=== PATIENT | female | born 1945 | race Caucasian/White ===

== ENCOUNTER 2017-07-23 19:08 | Observation (INO) ==
--- NOTE | 2017-07-23 19:17 | Emergency Department Note ---
Disposition Clinical Impression: Lower extremity edema, Elevated d-dimer Disposition: Admitted As Inpatient Condition: Fair Forms: ED Satisfaction Letter Time of Disposition: 21:27 ([facility]) Lower Extremity Injury HPI - General Chief Complaint: ED Extremity Problem,Nontraumatic Stated Complaint: Left leg pain Time Seen by Provider: 07/23/17 19:13 Source: patient Mode of arrival: ambulatory Limitations: no limitations Nursing Notes Reviewed: Yes Vital Signs Reviewed: Yes - History of Present Illness HPI Narrative: Status post total knee is now having severe leg pain states is worse when she ambulates she has followed up with orthopedics he told the incision looks good the knee joint looks good even x-ray showed the knee appears to be healing well patient though cannot understand why she is having 10 out of 10 pain since having the surgery C said she went home initially was doing fine here in the past couple weeks has really been having increasing pain and discomfort pt has noticed since the decrease in temperatures outside the pain has been getting worse has not seen chun downing Pt Subjective Complaint: leg injury Injury location: Left Leg Onset (ago): week(s) Mechanism of Injury: unknown Context: walking Place: home Pain Severity: moderate, severe Pain Scale: 7 Improves with: nothing Worsens with: weight bearing Associated symptoms: Reports: able to partially bear weight Treatments prior to arrival: other (has seen orthopedic provider) - Related Data Home Medications Medication Instructions Recorded Confirmed Amlodipine Besylate 10 mg PO 07/23/17 Aspirin Enteric Coated [Aspirin EC] 81 mg PO DAILY 07/23/17 07/23/17 Atorvastatin Calcium [Lipitor] 20 mg PO HS 07/23/17 07/23/17 Celecoxib [Celebrex] 100 mg PO BID 07/23/17 07/23/17 Ipratropium/Albuterol Neb [Duoneb] 3 ml IH Q6HR 07/23/17 07/23/17 Lansoprazole [Prevacid] 30 mg PO DAILY 07/23/17 07/23/17 Levothyroxine [Synthroid] 50 mcg PO DAILY 07/23/17 07/23/17 Lisinopril/Hydrochlorothiazide 20 - 25 mg PO DAILY 07/23/17 07/23/17 [Zestoretic 10-12.5 mg Tablet] Montelukast [Singulair] 10 mg PO DAILY 07/23/17 07/23/17 rOPINIRole [Requip] 1 mg PO TID 07/23/17 07/23/17 Allergies Allergy/AdvReac Type Severity Reaction Status Date / Time gabapentin AdvReac Hallucinati Verified 03/20/17 11:13 ng meloxicam [From Mobic] AdvReac Hallucinati Verified 03/20/17 11:13 ng Zolpidem [From Ambien] AdvReac Hallucinati Verified 03/20/17 11:13 ng All systems ED: reviewed and negative except as stated. Review of Systems: As Per HPI Constitutional: Denies: fever, chills Eyes: Denies: eye pain, eye discharge ENT ED: Denies: ear pain, throat pain Cardiovascular: Denies: chest pain, palpitations Respiratory: Denies: cough, dyspnea Gastrointestinal: Denies: abdominal pain, nausea, vomiting Genitourinary: Denies: urgency, dysuria Musculoskeletal: Reports: arthralgia, myalgia. Denies: joint swelling Integumentary: Denies: rash, abrasion Neurological: Denies: headache, weakness Psychiatric: Denies: anxiety, depression Endocrine: Denies: fatigue Hematological/Lymphatic: Denies: easy bleeding, easy bruising Allergic/Immunologic: Denies: facial swelling, urticaria Past Medical History - Past Medical History Attestation: Yes The following information was validated with the patient. Source: patient, old records reviewed, nursing notes reviewed Medical history: Reports: arthritis, asthma, atrial fibrillation, COPD, GERD, hyperlipidemia, hypertension, osteoporosis, thyroid disease, other Surgical history: Reports: hysterectomy, other Psychiatric history: Reports: depression [employer] history: Reports: bilateral tubal ligation - Social History Smoking Status: Never smoker Smokeless Tobacco Status: No Alcohol use: Reports: none Drug use: Reports: none Physical Exam - General Limitations: no limitations General appearance: alert, in no apparent distress, anxious - Head Head exam: atraumatic, normocephalic, normal inspection - Eye Eye exam: Present: normal appearance, PERRL, EOMI - ENT ENT exam: normal exam, normal oropharynx, mucous membranes moist, TM's normal bilaterally, normal external ear exam - Neck Neck exam: Present: normal inspection, full ROM, trachea midline - Chest Chest inspection: Present: normal inspection, symmetric chest wall rise - Respiratory Respiratory exam: Present: normal lung sounds bilaterally - Cardiovascular Cardiovascular exam: Present: regular rate, normal rhythm, normal heart sounds - Abdominal Exam Abdominal exam: Present: soft, Non-Tender, normal bowel sounds. Absent: mass, pulsatile mass - Expanded Upper Extremity Exam Shoulder exam: Present: normal inspection, full ROM Arm exam: Present: normal inspection, full ROM Elbow exam: Present: normal inspection, full ROM Forearm/Wrist exam: Present: normal inspection, full ROM Hand exam: Present: normal inspection, full ROM Neurosensory exam: Normal: radial nerve, ulnar nerve, median nerve Vascular exam: Normal: capillary refill, radial pulse, ulnar pulse - Expanded Lower Extremity Exam Hip/Pelvis exam: Present: normal inspection, full ROM Upper leg exam: Present: normal inspection, full ROM Knee exam: Present: normal inspection, full ROM Lower leg exam: Present: normal inspection, full ROM, tenderness, swelling, Homans' sign, Achilles tendon intact Ankle exam: Present: normal inspection, full ROM Foot/toe exam: Present: normal inspection, full ROM Neurovascular/Tendon exam: Present: normal capillary refill, normal fine/light touch. Absent: motor deficit, sensory deficit, tendon deficit Gait: observed and normal - Back Exam Back exam: Present: normal inspection, full ROM. Absent: muscle spasm - Neurological Exam Neurological exam: Present: alert, oriented X3, CN II-XII intact, normal gait - Psychiatric Psychiatric exam: Present: normal affect, normal mood - Skin Skin exam: Present: warm, dry, intact, normal color Course Course Narrative: pt seen and examined and labs done Vital Signs Temperature 97.7 F 07/23/17 19:09 Pulse Rate 90 07/23/17 19:09 Respiratory Rate 16 07/23/17 19:09 Blood Pressure 156/85 07/23/17 19:09 O2 Sat by Pulse Oximetry 100 07/23/17 19:09 Temperature 97.7 F 07/23/17 19:09 Pulse Rate 90 07/23/17 19:09 Respiratory Rate 16 07/23/17 19:09 Blood Pressure 156/85 07/23/17 19:09 O2 Sat by Pulse Oximetry 100 07/23/17 19:09 Oxygen Delivery Oxygen Delivery Room Air Extremity Injury, Lower - MDM Narrative Medical decision making narrative: DVT vascular disease - Differential Diagnosis Likely: sprain/strain, fracture, dislocation - Medical Records Medical records reviewed: Yes I reviewed the patient's medical records. - Lab Data Lab results reviewed: Yes I reviewed the patient's lab results. Result diagrams: 07/23/17 19:23 07/23/17 19:23 Lab Results 07/23/17 07/23/17 07/23/17 Range/Units 19:23 19:23 19:23 WBC 9.4 (4.3-11.1) K/mcL RBC 4.34 (3.82-4.97) M/mcL Hgb 12.3 (11.5-15.4) g/dL Hct 37.5 (35.3-44.9) % MCV 86.4 (83.0-100.0) fL MCH 28.3 (28.0-33.3) pg MCHC 32.8 (31.6-35.5) g/dL RDW 13.4 (11.5-14.5) % Plt Count 289 (140-400) K/mcL MPV 10.3 (9.4-12.4) fL Immature Gran % 0.5 (0-4) % Seg Neutrophils % 55.8 % Lymphocytes % 28.7 % Monocytes % 6.6 % Eosinophils % 7.7 % Basophils % 0.7 % Neutrophils # 5.2 (1.6-8.9) K/mcL Lymphocytes # 2.7 (0.6-4.6) K/mcL Monocytes # 0.6 (0.0-1.3) K/mcL Eosinophils # 0.7 H (0.0-0.6) K/mcL Basophils # 0.1 (0.0-0.2) K/mcL PT 10.7 (9.4-12.1) Seconds INR 1.0 APTT 29.5 (26.0-36.0) Seconds D-Dimer 1383 H (0-500) ng/mLFEU Sodium 140 (136-145) mEq/L Potassium 4.2 (3.5-4.5) mEq/L Chloride 106 (98-109) mEq/L Carbon Dioxide 25 (19-29) mEq/L BUN 19 (7-20) mg/dL Creatinine 0.83 (0.57-1.11) mg/dL Est GFR ( Amer) > 60 (> 60) Est GFR (Non-Af Amer) > 60 (> 60) BUN/Creatinine Ratio 23 (6-26) Glucose 92 (70-99) mg/dL Calculated Osmolality 292 (280-300) Calcium 9.5 (8.6-10.8) mg/dL Critical Care Time Critical Care Time: No
[2017-07-23 19:31] LABS: Basophils # 0.1 K/mcL (0.0-0.2); Basophils % 0.7 %; Eosinophils # 0.7 K/mcL (0.0-0.6); Eosinophils % 7.7 %; Hematocrit 37.5 % (35.3-44.9); Hemoglobin 12.3 g/dL (11.5-15.4); Immature Granulocytes % 0.5 % (0-4); Lymphocytes # 2.7 K/mcL (0.6-4.6); Lymphocytes % 28.7 %; Mean Corpuscular HGB Conc 32.8 g/dL (31.6-35.5); Mean Corpuscular Hemoglobin 28.3 pg (28.0-33.3); Mean Corpuscular Volume 86.4 fL (83.0-100.0); Mean Platelet Volume 10.3 fL (9.4-12.4); Monocytes # 0.6 K/mcL (0.0-1.3); Monocytes % 6.6 %; Neutrophils # 5.2 K/mcL (1.6-8.9); Platelet Count 289 K/mcL (140-400); Red Blood Count 4.34 M/mcL (3.82-4.97); Red Cell Distribution Width 13.4 % (11.5-14.5); Segmented Neutrophils % 55.8 %
[2017-07-23 19:38] LABS: Prothrombin Time 10.7 Seconds (9.4-12.1)
[2017-07-23 19:41] LABS: Activated Partial Thrombo Time 29.5 Seconds (26.0-36.0)
[2017-07-23 19:47] LABS: BUN/Creatinine Ratio 23 (6-26); Blood Urea Nitrogen 19 mg/dL (7-20); Calcium 9.5 mg/dL (8.6-10.8); Carbon Dioxide 25 mEq/L (19-29); Chloride 106 mEq/L (98-109); Glucose 92 mg/dL (70-99); Osmolality,Calculated 292 (280-300); Potassium 4.2 mEq/L (3.5-4.5); Sodium 140 mEq/L (136-145); eGFR For African Americans > 60 (> 60); eGFR For Non-African Americans > 60 (> 60)
[2017-07-23] MEDS ORDERED: *HR* Enoxaparin 100 MG/ML SYRINGE SQ STA (21:28)
[2017-07-23] MEDS ORDERED: *HR* HYDROcodone/Acet 5/325 mg TABLET PO ONE (21:28)
[2017-07-23] MEDS ORDERED: Naloxone 0.4 MG/ML INJ IVP PRN (21:51)
[2017-07-23] MEDS ORDERED: *HR* HYDROcodone/Acet 5/325 mg TABLET PO PRN (21:51)
[2017-07-23] MEDS ORDERED: Ondansetron ODT 4 MG TAB.RAPDIS SL PRN (21:51)
[2017-07-23] MEDS: rOPINIRole 1 MG TABLET PO SCH (23:05)
[2017-07-24] MEDS: Ipratropium/Albuterol Neb 3 ML IH SCH ×3 (04:40→15:38)
[2017-07-24] MEDS ORDERED: Levothyroxine 25 MCG TABLET PO SCH (06:30)
[2017-07-24 08:14] LABS: Basophils # 0.1 K/mcL (0.0-0.2); Basophils % 0.8 %; Eosinophils # 0.8 K/mcL (0.0-0.6); Eosinophils % 10.6 %; Hematocrit 36.2 % (35.3-44.9); Hemoglobin 11.6 g/dL (11.5-15.4); Immature Granulocytes % 0.4 % (0-4); Lymphocytes # 2.6 K/mcL (0.6-4.6); Lymphocytes % 34.3 %; Mean Corpuscular Hemoglobin 28.1 pg (28.0-33.3); Mean Corpuscular Volume 87.7 fL (83.0-100.0); Mean Platelet Volume 11.2 fL (9.4-12.4); Monocytes # 0.5 K/mcL (0.0-1.3); Monocytes % 6.7 %; Neutrophils # 3.6 K/mcL (1.6-8.9); Platelet Count 273 K/mcL (140-400); Red Blood Count 4.13 M/mcL (3.82-4.97); Red Cell Distribution Width 13.6 % (11.5-14.5); Segmented Neutrophils % 47.2 %
[2017-07-24] MEDS: rOPINIRole 1 MG TABLET PO SCH (08:50)
[2017-07-24] MEDS ORDERED: rOPINIRole 1 MG TABLET PO SCH (09:00)
[2017-07-24] MEDS ORDERED: Aspirin Enteric Coated 81 MG Tablet PO SCH (09:00)
[2017-07-24] MEDS ORDERED: *HR* Enoxaparin 100 MG/ML SYRINGE SQ SCH ×2 (09:00→14:45)
[2017-07-24] MEDS ORDERED: Celecoxib 100 MG CAPSULE PO SCH (09:00)
[2017-07-24 09:03] LABS: Prothrombin Time 11.2 Seconds (9.4-12.1)
[2017-07-24 09:05] LABS: Activated Partial Thrombo Time 35.8 Seconds (26.0-36.0)
[2017-07-24 09:35] LABS: BUN/Creatinine Ratio 26 (6-26); Blood Urea Nitrogen 20 mg/dL (7-20); Carbon Dioxide 25 mEq/L (19-29); Chloride 107 mEq/L (98-109); Glucose 75 mg/dL (70-99); Osmolality,Calculated 293 (280-300); Potassium 4.3 mEq/L (3.5-4.5); Sodium 141 mEq/L (136-145); eGFR For African Americans > 60 (> 60); eGFR For Non-African Americans > 60 (> 60)
[2017-07-24 14:41] VITALS: BP 112/64
--- NOTE | 2017-07-24 15:18 | Internal Med History&Physical ---
Date of Encounter: 07/24/17 Time of Encounter: 14:45 Assessment and Plan (1) Left knee pain Current visit: Yes Status: Acute Venous Doppler study was ordered through emergency room. Qualifiers: Chronicity: acute Qualified Code(s): M25.562 - Pain in left knee Internal Medicine - H&P: HPI Chief complaint: Left leg pain Admitted From: Emergency Dept Plans for Post Hospital Care: Home History of present illness: Ms. Ross is a 72 year old female who came to emergency room complaining of increasing pain in her left leg onset one month earlier. She denies injury to the leg. She had elective left total knee replacement March 2017 and had followed with her orthopedist approximately 2 weeks ago. Knee x-rays were negative and she was given a seven-day supply of oxycodone. She reports she is being referred to MRI and possible pain management. Evaluation in emergency room showed elevated d-dimer. Chest CTA was unremarkable for PE. She was admitted to [facility] floor until venous Doppler could be done. Her musculoskeletal history is pertinent for DJD and osteoporosis. She denies known gout or other bone joint or muscle disorders. Past Med Surg Social Fam HX - Past Medical History Medical history: arthritis, asthma, atrial fibrillation, COPD, GERD, hyperlipidemia, hypertension, osteoporosis, thyroid disease, other Psychiatric history: depression - Past Surgical History Surgical History: hysterectomy, other - Social History Smoking Status: Never smoker Smokeless Tobacco Status: No Alcohol use: none Drug use: none - Family History Mother Living Status: Hx Family Cardiac Disorders: No Hx Family Respiratory Disorders: No Hx Family Cancer: Yes (Skin) Hx Family GI Disorders: No Hx Family Endocrine Disorder: No Hx Family Neuromuscular Disorders: No Hx Family Neurologic Disorders: No Hx Family HEENT Disorders: No Hx Family Autoimmune Disorders: No Father Living Status: Hx Family Cardiac Disorders: Yes (NM) Hx Family Respiratory Disorders: No Hx Family Cancer: No Hx Family GI Disorders: No Hx Family Endocrine Disorder: No Hx Family Neuromuscular Disorders: No Hx Family Neurologic Disorders: No Hx Family HEENT Disorders: No Hx Family Autoimmune Disorders: No Internal Medicine - H&P: Meds Amlodipine Besylate 10 mg PO 07/23/17 [History] Aspirin Enteric Coated [Aspirin EC] 81 mg PO DAILY 07/23/17 [History] Atorvastatin Calcium [Lipitor] 20 mg PO HS 07/23/17 [History] Celecoxib [Celebrex] 100 mg PO BID 07/23/17 [History] Ipratropium/Albuterol Neb [Duoneb] 3 ml IH Q6HR 07/23/17 [History] Lansoprazole [Prevacid] 30 mg PO DAILY 07/23/17 [History] Levothyroxine [Synthroid] 50 mcg PO DAILY 07/23/17 [History] Lisinopril/Hydrochlorothiazide [Zestoretic 10-12.5 mg Tablet] 20 - 25 mg PO DAILY 07/23/17 [History] Montelukast [Singulair] 10 mg PO DAILY 07/23/17 [History] rOPINIRole [Requip] 1 mg PO TID 07/23/17 [History] 3 Allergy/AdvReac Type Severity Reaction Status Date / Time gabapentin AdvReac Hallucinati Verified 03/20/17 11:13 ng meloxicam [From Mobic] AdvReac Hallucinati Verified 03/20/17 11:13 ng Zolpidem [From Ambien] AdvReac Hallucinati Verified 03/20/17 11:13 ng All Systems PM: A 10-system review of systems was performed and is negative for pertinent findings except as documented above in the HPI. Review of systems: Gen.: Her weight has been stable at approximately 90 kg since the February 2015 [facility] hospitalization. Cardiovascular: She has a history of hypertension. She denies NM heart failure DVT or pulmonary embolus. She was unable to complete an exercise stress test several years ago due to being unable to walk on the treadmill. She had transient atrial fibrillation during her February 2015 [facility] hospitalization. Respiratory: She is a lifelong nonsmoker. 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 She had PFTs approximately 2012 and was told she had asthma and COPD. GI: She has GERD but no known disorders of her liver gallbladder or exocrine pancreas : She denies hematuria dysuria or kidney stones Neurologic: She has diagnoses of RLS. She denies large distribution strokes or seizures. Endocrine: She has hypothyroidism and hyperlipidemia but denies known diabetes. Hematology/oncology: She has history of anemia but it has resolved now. She denies internal malignancies or blood disorders. Psychiatric: She has history of anxiety and depression in the past. She denies other known mental health disorders. Musculoskeletal: As per history of present illness - Constitutional Vitals: Temp Pulse Resp BP Pulse Ox 97.7 F 75 18 112/64 95 07/24/17 14:39 07/24/17 14:39 07/24/17 14:39 07/24/17 14:39 07/24/17 14:39 Exam: Gen.: She is a well-developed well-nourished female resting comfortably in bed who appears in no acute distress HEENT: Head is atraumatic and normocephalic. Eyes: EOMI. There is no scleral icterus. Mouth: Mucosa is moist. Neck: Supple and nontender. There is no thyromegaly or adenopathy noted. Heart: Regular without murmurs gallops or ectopics Lungs: No wheezes or crackles are heard. Abdomen: Soft and nontender. No masses or guarding are noted. Extremities: There is no cyanosis edema or clubbing noted. Dorsalis pedis and posterior tibial pulses are 1-2 over 2 bilaterally. The left knee shows well- healed incision from previous TKR. There is no effusion or erythema or increased warmth on the left knee. She has minimal discomfort on passive range of motion of the knee. There is no pain on internal or external rotation of the left hip or on passive range of motion of the ankle. She has DJD changes of her hands. Neurologic: Mental status: She is talkative and a good historian. Cranial nerves: Smile is symmetric. Forehead wrinkles bilaterally. Tongue protrudes midline. EOMI. Motor: There is no pronator drift. Cerebellar: Finger to nose is intact bilaterally. Skin: Warm and dry Internal Med - H&P Results - Labs CBC & Chem 7: 07/24/17 07:27 07/24/17 07:27 Labs: Short CBC 07/24/17 Range/Units 07:27 WBC 7.6 (4.3-11.1) K/mcL Hgb 11.6 (11.5-15.4) g/dL Hct 36.2 (35.3-44.9) % Plt Count 273 (140-400) K/mcL Neutrophils # 3.6 (1.6-8.9) K/mcL BMP 07/24/17 07:27 Sodium 141 Potassium 4.3 Chloride 107 Carbon Dioxide 25 BUN 20 Creatinine 0.78 Glucose 75 Calcium 9.0
--- NOTE | 2017-07-24 15:28 | Discharge Summary ---
Date of Encounter: 07/24/17 Time of Encounter: 14:45 - Discharge Diagnosis (1) Left knee pain Priority: Primary Status: Acute Qualifiers: Chronicity: acute Qualified Code(s): M25.562 - Pain in left knee - Discharge Medications Home Medications: Amlodipine Besylate 10 mg PO 07/23/17 [History] Aspirin Enteric Coated [Aspirin EC] 81 mg PO DAILY 07/23/17 [History] Atorvastatin Calcium [Lipitor] 20 mg PO HS 07/23/17 [History] Celecoxib [Celebrex] 100 mg PO BID 07/23/17 [History] Ipratropium/Albuterol Neb [Duoneb] 3 ml IH Q6HR 07/23/17 [History] Lansoprazole [Prevacid] 30 mg PO DAILY 07/23/17 [History] Levothyroxine [Synthroid] 50 mcg PO DAILY 07/23/17 [History] Lisinopril/Hydrochlorothiazide [Zestoretic 10-12.5 mg Tablet] 20 - 25 mg PO DAILY 07/23/17 [History] Montelukast [Singulair] 10 mg PO DAILY 07/23/17 [History] rOPINIRole [Requip] 1 mg PO TID 07/23/17 [History] Allergies/Adverse Reactions: 3 Allergy/AdvReac Type Severity Reaction Status Date / Time gabapentin AdvReac Hallucinati Verified 03/20/17 11:13 ng meloxicam [From Mobic] AdvReac Hallucinati Verified 03/20/17 11:13 ng Zolpidem [From Ambien] AdvReac Hallucinati Verified 03/20/17 11:13 ng Procedures/tests Complete & Pending: Procedures Performed prior 72 hours Category Date Time Status EV venous imaging LE LT Stat Y 07/24/17 07:00 Completed Date of admission: 07/23/17 21:39 Primary care physician: Ashlyn Herman - Patient Status Disposition: Home, Self-Care Condition: Fair Overall status at discharge: patient is progressing back to baseline - Discharge Instructions Follow Up With: Ashlyn Herman, IT APPLICATIONS MANAGER [Primary Care Provider] - 1 week - Diet and Activity Activity: resume usual activities as tolerated Diet: advance to your usual diet Hospital course: Ms. Ross is a 72 year old female who came to emergency room complaining of increasing pain in her left leg onset one month earlier. She denies injury to the leg. She had elective left total knee replacement March 2017 and had followed with her orthopedist approximately 2 weeks ago. Knee x-rays were negative and she was given a seven-day supply of oxycodone. She reports she is being referred to MRI and possible pain management. Evaluation in emergency room showed elevated d-dimer. Chest CTA was unremarkable for PE. She was admitted to [facility] until venous Doppler could be done. Initial orders were written by the emergency room physician. I saw her the afternoon of July 24 and performed a history physical and discharge. Venous Doppler study showed no evidence of DVT. I felt she was stable for discharge home. I encouraged her to use OTC Tylenol 500 mg every 6 hours and continue the Celebrex she is already taking. She will follow with her PCP and/or orthopedist within 1 week. - Time Spent with Patient Total time spent providing and/or coordinating discharge services: - Constitutional Vitals: Temp Pulse Resp BP Pulse Ox 97.7 F 75 18 112/64 95 07/24/17 14:39 07/24/17 14:39 07/24/17 14:39 07/24/17 14:39 07/24/17 14:39
== END 2017-07-24 15:55 | disposition home or self-care (01) ==
LOC: INPPIK 19:08 → EMEROOPIK 19:08 → INPPIK 22:01
PROVIDERS: ADMIT Internal Medicine; ATTEND Internal Medicine

== ENCOUNTER 2019-05-22 08:29 | Observation (INO) ==
[2019-05-22] MEDS ORDERED: Albuterol 2.5 MG/3 ML NEBULIZER IH ONE (08:32)
[2019-05-22] MEDS ORDERED: methylPREDNISolone 125 MG/2 ML VIAL IVP ONE (08:32)
[2019-05-22] MEDS ORDERED: Ipratropium/Albuterol Neb 3 ML IH ONE (08:32)
[2019-05-22 08:55] LABS: Basophils # 0.1 K/mcL (0.0-0.2); Basophils % 0.7 %; Eosinophils # 0.9 K/mcL (0.0-0.6); Eosinophils % 9.9 %; Hematocrit 38.2 % (35.3-44.9); Hemoglobin 12.2 g/dL (11.5-15.4); Immature Granulocytes % 0.3 % (0-4); Lymphocytes % 23.5 %; Mean Corpuscular HGB Conc 31.9 g/dL (31.6-35.5); Mean Corpuscular Hemoglobin 28.8 pg (28.0-33.3); Mean Corpuscular Volume 90.1 fL (83.0-100.0); Mean Platelet Volume 10.8 fL (9.4-12.4); Monocytes # 0.7 K/mcL (0.0-1.3); Monocytes % 8.1 %; Platelet Count 272 K/mcL (140-400); Red Blood Count 4.24 M/mcL (3.82-4.97); Red Cell Distribution Width 12.9 % (11.5-14.5); Segmented Neutrophils % 57.5 %; White Blood Count 8.7 K/mcL (4.3-11.1)
[2019-05-22 08:57] LABS: INR 1.1; Prothrombin Time 12.2 Seconds (9.4-12.1)
[2019-05-22 08:59] LABS: Activated Partial Thrombo Time 33.7 Seconds (26.0-36.0)
[2019-05-22] MEDS: Nitroglycerin 0.4 MG TAB.SUBL SL SCH ×2 (09:00→14:56)
[2019-05-22 09:04] LABS: BUN/Creatinine Ratio 17 (6-26); Blood Urea Nitrogen 15 mg/dL (8-23); Calcium 9.3 mg/dL (8.6-10.3); Carbon Dioxide 27 mEq/L (23-29); Chloride 102 mEq/L (98-107); Glucose 98 mg/dL (70-105); Osmolality,Calculated 283 (280-300); Potassium 3.7 mEq/L (3.5-5.1); Sodium 136 mEq/L (136-145); eGFR For African Americans > 60 (> 60); eGFR For Non-African Americans > 60 (> 60)
[2019-05-22 09:07] LABS: Troponin I < 0.03 ng/mL (< 0.04)
[2019-05-22] MEDS ORDERED: MOM Conc 10 ML UD.LIQ PO PRN (11:04)
[2019-05-22] MEDS ORDERED: Mag Hydrox/Al Hydrox/Simeth 30 ML UDC PO PRN (11:04)
[2019-05-22] MEDS ORDERED: Acetaminophen 325 MG TABLET PO PRN (11:04)
[2019-05-22] MEDS ORDERED: Ipratropium/Albuterol Neb 3 ML IH PRN (11:04)
[2019-05-22] MEDS ORDERED: *HR* HYDROcodone/Acet 5/325 mg TABLET PO PRN (11:04)
[2019-05-22] MEDS ORDERED: Naloxone 0.4 MG/ML INJ IVP PRN (11:04)
[2019-05-22] MEDS: rOPINIRole 1 MG TABLET PO SCH ×2 (15:14→20:10)
[2019-05-22] MEDS: Metoprolol XL (24 HR) Succ 25 MG TAB.ER.24H PO SCH (17:43)
[2019-05-23] MEDS ORDERED: Levothyroxine 25 MCG TABLET PO SCH (06:30)
[2019-05-23 06:53] LABS: Magnesium 1.9 mg/dL (1.6-2.6); Phosphorous 3.7 mg/dL (2.7-4.5); Uric Acid 4.6 mg/dL (2.3-7.6)
[2019-05-23 07:02] VITALS: BP 144/86
[2019-05-23 07:03] LABS: Thyroid Stimulating Hormone 1.165 mcIU/mL (0.340-5.600)
[2019-05-23 08:08] LABS: Basophils % 0.2 %; Eosinophils % 0.1 %; Hematocrit 34.5 % (35.3-44.9); Hemoglobin 11.3 g/dL (11.5-15.4); Immature Granulocytes % 0.4 % (0-4); Lymphocytes # 1.4 K/mcL (0.6-4.6); Lymphocytes % 12.6 %; Mean Corpuscular HGB Conc 32.8 g/dL (31.6-35.5); Mean Corpuscular Hemoglobin 29.4 pg (28.0-33.3); Mean Corpuscular Volume 89.6 fL (83.0-100.0); Mean Platelet Volume 11.2 fL (9.4-12.4); Monocytes # 0.7 K/mcL (0.0-1.3); Monocytes % 5.9 %; Neutrophils # 8.9 K/mcL (1.6-8.9); Platelet Count 245 K/mcL (140-400); Red Blood Count 3.85 M/mcL (3.82-4.97); Red Cell Distribution Width 12.8 % (11.5-14.5); Segmented Neutrophils % 80.8 %; White Blood Count 11.1 K/mcL (4.3-11.1)
[2019-05-23 08:13] LABS: BUN/Creatinine Ratio 28 (6-26); Blood Urea Nitrogen 21 mg/dL (8-23); Calcium 9.2 mg/dL (8.6-10.3); Carbon Dioxide 22 mEq/L (23-29); Chloride 106 mEq/L (98-107); Glucose 130 mg/dL (70-105); Osmolality,Calculated 293 (280-300); Potassium 4.1 mEq/L (3.5-5.1); Sodium 139 mEq/L (136-145); eGFR For African Americans > 60 (> 60); eGFR For Non-African Americans > 60 (> 60)
[2019-05-23] MEDS: rOPINIRole 1 MG TABLET PO SCH (08:33)
[2019-05-23] MEDS: Metoprolol XL (24 HR) Succ 25 MG TAB.ER.24H PO SCH (08:34)
[2019-05-23] MEDS ORDERED: Aspirin Enteric Coated 81 MG Tablet PO SCH (09:00)
[2019-05-23] MEDS ORDERED: amLODIPine 5 MG TABLET PO SCH (09:00)
== END 2019-05-23 11:14 | disposition home or self-care (01) ==
LOC: EMEROOPIK 08:29 → INPPIK 08:29
PROVIDERS: ADMIT Internal Medicine; ATTEND Internal Medicine

== ENCOUNTER 2019-06-29 15:35 | Observation (INO) ==
[2019-06-29] MEDS ORDERED: Ipratropium/Albuterol Neb 3 ML IH ONE (15:44)
[2019-06-29] MEDS ORDERED: methylPREDNISolone 125 MG/2 ML VIAL IVP ONE (15:44)
[2019-06-29] MEDS ORDERED: Albuterol 2.5 MG/3 ML NEBULIZER IH ONE ×2 (15:44→16:14)
[2019-06-29 16:05] LABS: Basophils % 0.4 %; Eosinophils # 0.1 K/mcL (0.0-0.6); Eosinophils % 1.4 %; Hematocrit 37.5 % (35.3-44.9); Hemoglobin 12.2 g/dL (11.5-15.4); Immature Granulocytes % 0.4 % (0-4); Lymphocytes # 1.6 K/mcL (0.6-4.6); Lymphocytes % 18.8 %; Mean Corpuscular HGB Conc 32.5 g/dL (31.6-35.5); Mean Corpuscular Hemoglobin 28.9 pg (28.0-33.3); Mean Corpuscular Volume 88.9 fL (83.0-100.0); Mean Platelet Volume 10.7 fL (9.4-12.4); Monocytes # 0.5 K/mcL (0.0-1.3); Monocytes % 5.4 %; Neutrophils # 6.1 K/mcL (1.6-8.9); Platelet Count 240 K/mcL (140-400); Red Blood Count 4.22 M/mcL (3.82-4.97); Segmented Neutrophils % 73.6 %; White Blood Count 8.3 K/mcL (4.3-11.1)
[2019-06-29 16:12] LABS: INR 1.1; Prothrombin Time 12.5 Seconds (9.4-12.1)
[2019-06-29] MEDS ORDERED: cefTRIAXone 1,000 MG in 0.9 % Sodium Chloride Mini Bag 100 ML IVPB ONE (16:15)
[2019-06-29] MEDS ORDERED: Benzonatate 100 MG CAPSULE PO PRN ×2 (16:21→18:11)
[2019-06-29 16:24] LABS: BUN/Creatinine Ratio 26 (6-26); Blood Urea Nitrogen 22 mg/dL (8-23); Calcium 9.5 mg/dL (8.6-10.3); Carbon Dioxide 27 mEq/L (23-29); Chloride 101 mEq/L (98-107); Glucose 125 mg/dL (70-105); Osmolality,Calculated 289 (280-300); Potassium 3.6 mEq/L (3.5-5.1); Sodium 137 mEq/L (136-145); Troponin I < 0.03 ng/mL (< 0.04); eGFR For African Americans > 60 (> 60); eGFR For Non-African Americans > 60 (> 60)
[2019-06-29] MEDS ORDERED: Naloxone 0.4 MG/ML INJ IVP PRN ×2 (16:30→18:11)
[2019-06-29] MEDS ORDERED: Ipratropium/Albuterol Neb 3 ML IH SCH (17:00)
[2019-06-29] MEDS ORDERED: levoFLOXacin 500 MG/100 ML 500 MG/100 ML BAG IVPB SCH (18:00)
[2019-06-29] MEDS ORDERED: MethylPREDNISolone 40 MG/ML VIAL IVP SCH (21:00)
[2019-06-29] MEDS ORDERED: rOPINIRole 1 MG TABLET PO SCH (21:00)
[2019-06-29] MEDS: Ipratropium/Albuterol Neb 3 ML IH SCH (21:29)
[2019-06-29] MEDS: Budesonide/Formoterol 80/4.5 1 PUFF INH IH SCH (21:36)
[2019-06-29] MEDS: rOPINIRole 1 MG TABLET PO SCH (22:09)
[2019-06-29] MEDS: MethylPREDNISolone 40 MG/ML VIAL IVP SCH (22:10)
[2019-06-30] MEDS ORDERED: *HR* Enoxaparin 40 MG/0.4 ML SYRINGE SQ SCH (06:00)
[2019-06-30 06:06] LABS: Hematocrit 35.9 % (35.3-44.9); Hemoglobin 11.6 g/dL (11.5-15.4); Mean Corpuscular HGB Conc 32.3 g/dL (31.6-35.5); Mean Corpuscular Hemoglobin 29.2 pg (28.0-33.3); Mean Corpuscular Volume 90.4 fL (83.0-100.0); Mean Platelet Volume 11.6 fL (9.4-12.4); Platelet Count 235 K/mcL (140-400); Red Blood Count 3.97 M/mcL (3.82-4.97); Red Cell Distribution Width 13.8 % (11.5-14.5)
[2019-06-30 06:23] LABS: BUN/Creatinine Ratio 27 (6-26); Blood Urea Nitrogen 26 mg/dL (8-23); Calcium 9.6 mg/dL (8.6-10.3); Carbon Dioxide 23 mEq/L (23-29); Chloride 101 mEq/L (98-107); Glucose 191 mg/dL (70-105); Osmolality,Calculated 294 (280-300); Potassium 3.6 mEq/L (3.5-5.1); Sodium 137 mEq/L (136-145); eGFR For African Americans > 60 (> 60); eGFR For Non-African Americans 57 (> 60)
[2019-06-30 07:36] VITALS: BP 132/79
[2019-06-30] MEDS: Budesonide/Formoterol 80/4.5 1 PUFF INH IH SCH (08:50)
[2019-06-30] MEDS: Ipratropium/Albuterol Neb 3 ML IH SCH ×2 (08:50→13:22)
[2019-06-30] MEDS ORDERED: Levothyroxine 25 MCG TABLET PO SCH (09:00)
[2019-06-30] MEDS ORDERED: levoFLOXacin 500 MG/100 ML 500 MG/100 ML BAG IVPB SCH ×2 (09:00)
[2019-06-30] MEDS ORDERED: Aspirin Enteric Coated 81 MG Tablet PO SCH (09:00)
[2019-06-30] MEDS ORDERED: Metoprolol XL (24 HR) Succ 25 MG TAB.ER.24H PO SCH (09:00)
[2019-06-30] MEDS: MethylPREDNISolone 40 MG/ML VIAL IVP SCH (09:07)
[2019-06-30] MEDS: rOPINIRole 1 MG TABLET PO SCH (09:07)
== END 2019-06-30 12:55 | disposition home or self-care (01) ==
LOC: EMEROOPIK 15:35 → INPPIK 15:35
PROVIDERS: ADMIT Family Medicine; ATTEND Family Medicine

== ENCOUNTER 2021-05-29 14:16 | Observation (INO) ==
[2021-05-29 15:11] LABS: Basophils % 0.3 %; Eosinophils # 0.4 K/mcL (0.0-0.6); Eosinophils % 2.9 %; Hematocrit 36.6 % (35.3-44.9); Hemoglobin 10.9 g/dL (11.5-15.4); Immature Granulocytes % 0.5 % (0-4); Lymphocytes # 2.1 K/mcL (0.6-4.6); Lymphocytes % 16.1 %; Mean Corpuscular HGB Conc 29.8 g/dL (31.6-35.5); Mean Corpuscular Hemoglobin 25.7 pg (28.0-33.3); Mean Corpuscular Volume 86.3 fL (83.0-100.0); Mean Platelet Volume 11.4 fL (9.4-12.4); Monocytes # 0.7 K/mcL (0.0-1.3); Monocytes % 5.1 %; Platelet Count 294 K/mcL (140-400); Red Blood Count 4.24 M/mcL (3.82-4.97); Red Cell Distribution Width 15.3 % (11.5-14.5); Segmented Neutrophils % 75.1 %
[2021-05-29 15:22] LABS: INR 1.1; Prothrombin Time 12.3 Seconds (9.4-12.1)
[2021-05-29 15:23] LABS: Bilirubin,Urine Negative (Negative); Blood,Urine Negative (Negative); Clarity,Urine Clear (Clear); Color,Urine Yellow (Yellow); Glucose,Urine (UA) Normal (Normal); Ketones,Urine Negative (Negative); Leukocyte Esterase,Urine Small (Negative); Nitrite,Urine Negative (Negative); Protein,Urine Negative (Neg-Trace); Urobilinogen,Urine Normal (Normal)
[2021-05-29 15:25] LABS: Activated Partial Thrombo Time 31.3 Seconds (26.0-36.0)
[2021-05-29 15:27] LABS: BUN/Creatinine Ratio 11 (6-26); Blood Urea Nitrogen 11 mg/dL (8-23); Carbon Dioxide 23 mEq/L (23-29); Chloride 100 mEq/L (98-107); Glucose 88 mg/dL (70-105); Osmolality,Calculated 279 (280-300); Potassium 3.2 mEq/L (3.5-5.1); Sodium 135 mEq/L (136-145); eGFR For African Americans > 60 (> 60); eGFR For Non-African Americans 52 (> 60)
[2021-05-29 15:30] LABS: Neutrophils # 9.8 K/mcL (1.6-8.9)
[2021-05-29 15:37] LABS: Squamous Epithelial Cell,Urine Few per hpf (None-Few); WBC,Urine 0-3 per hpf (0-3)
[2021-05-29 15:40] LABS: Troponin I < 0.03 ng/mL (< 0.04)
[2021-05-29] MEDS ORDERED: DilTIAZem CD (24hr) 120 MG CAP.ER.24H PO ONE (16:12)
[2021-05-29] MEDS ORDERED: Acetaminophen 325 MG TABLET PO PRN (16:58)
[2021-05-29] MEDS ORDERED: Naloxone 0.4 MG/ML INJ IVP PRN (16:58)
[2021-05-29] MEDS ORDERED: Mag Hydrox/Al Hydrox/Simeth 30 ML UDC PO PRN (16:58)
[2021-05-29] MEDS ORDERED: MOM Conc 10 ML UD.LIQ PO PRN (16:58)
[2021-05-29] MEDS ORDERED: Ondansetron 4 MG/2 ML VIAL IVP PRN (16:58)
[2021-05-29] MEDS ORDERED: Levalbuterol Neb 1.25 MG/3 ML IH PRN (17:06)
[2021-05-29] MEDS ORDERED: Ipratropium 1 PUFF INHALER IH PRN (17:07)
[2021-05-29] MEDS ORDERED: *HR* Metoprolol 5 MG/5 ML VIAL IVP PRN (18:31)
[2021-05-29] MEDS: rOPINIRole 1 MG TABLET PO SCH (20:39)
[2021-05-29] MEDS: Sucralfate 1 GM TABLET PO SCH (20:39)
[2021-05-29] MEDS: Apixaban 5 MG TABLET PO SCH (20:40)
[2021-05-29] MEDS: Diclofenac Sodium (DR) 50 MG TABLET.DR PO SCH (20:40)
[2021-05-29] MEDS: Budesonide/Formoterol 80/4.5 1 PUFF INH IH SCH (21:11)
[2021-05-30] MEDS: Budesonide/Formoterol 80/4.5 1 PUFF INH IH SCH ×2 (08:23→21:09)
[2021-05-30 08:26] LABS: Basophils % 0.4 %; Eosinophils # 0.6 K/mcL (0.0-0.6); Eosinophils % 6.2 %; Hematocrit 30.4 % (35.3-44.9); Hemoglobin 9.1 g/dL (11.5-15.4); Immature Granulocytes % 0.3 % (0-4); Lymphocytes % 22.3 %; Mean Corpuscular HGB Conc 29.9 g/dL (31.6-35.5); Mean Corpuscular Hemoglobin 25.6 pg (28.0-33.3); Mean Corpuscular Volume 85.6 fL (83.0-100.0); Mean Platelet Volume 9.9 fL (9.4-12.4); Monocytes # 0.7 K/mcL (0.0-1.3); Monocytes % 7.8 %; Neutrophils # 5.6 K/mcL (1.6-8.9); Platelet Count 315 K/mcL (140-400); Red Blood Count 3.55 M/mcL (3.82-4.97); Red Cell Distribution Width 15.4 % (11.5-14.5); White Blood Count 8.9 K/mcL (4.3-11.1)
[2021-05-30 08:55] LABS: Calcium 8.7 mg/dL (8.6-10.3); Potassium 3.9 mEq/L (3.5-5.1)
[2021-05-30] MEDS: rOPINIRole 1 MG TABLET PO SCH ×3 (10:01→21:17)
[2021-05-30] MEDS: Sucralfate 1 GM TABLET PO SCH ×2 (10:01→21:17)
[2021-05-30] MEDS: Aspirin Enteric Coated 81 MG Tablet PO SCH (10:02)
[2021-05-30] MEDS: Loratadine 10 MG TABLET PO SCH (10:02)
[2021-05-30] MEDS: Diclofenac Sodium (DR) 50 MG TABLET.DR PO SCH ×2 (10:02→21:17)
[2021-05-30] MEDS: Cyanocobalamin (B-12) 1,000 MCG TABLET PO SCH (10:02)
[2021-05-30] MEDS: Cholecalciferol (D-3) 1,000 UNIT (25MCG) TABLET PO SCH (10:02)
[2021-05-30] MEDS: Furosemide 20 MG TABLET PO SCH (10:03)
[2021-05-30] MEDS: Apixaban 5 MG TABLET PO SCH ×2 (10:06→21:17)
[2021-05-30] MEDS: DilTIAZem CD (24hr) 120 MG CAP.ER.24H PO SCH (10:08)
[2021-05-30] MEDS: Metoprolol XL (24 HR) Succ 50 MG TAB.ER.24H PO SCH (10:08)
[2021-05-30] MEDS: Nystatin SUSP 5 ML UD.LIQ PO SCH ×4 (10:11→21:18)
[2021-05-31 08:36] LABS: Basophils # 0.1 K/mcL (0.0-0.2); Basophils % 0.5 %; Eosinophils # 0.7 K/mcL (0.0-0.6); Eosinophils % 6.8 %; Hematocrit 29.8 % (35.3-44.9); Immature Granulocytes % 0.4 % (0-4); Lymphocytes # 1.8 K/mcL (0.6-4.6); Mean Corpuscular HGB Conc 30.2 g/dL (31.6-35.5); Mean Corpuscular Hemoglobin 25.8 pg (28.0-33.3); Mean Corpuscular Volume 85.4 fL (83.0-100.0); Mean Platelet Volume 10.3 fL (9.4-12.4); Monocytes # 0.7 K/mcL (0.0-1.3); Neutrophils # 6.4 K/mcL (1.6-8.9); Platelet Count 339 K/mcL (140-400); Red Blood Count 3.49 M/mcL (3.82-4.97); Red Cell Distribution Width 15.5 % (11.5-14.5); Segmented Neutrophils % 66.3 %; White Blood Count 9.7 K/mcL (4.3-11.1)
[2021-05-31] MEDS: Budesonide/Formoterol 80/4.5 1 PUFF INH IH SCH ×2 (08:41→21:13)
[2021-05-31 08:44] LABS: Calcium 8.9 mg/dL (8.6-10.3)
[2021-05-31] MEDS: Apixaban 5 MG TABLET PO SCH ×2 (08:45→19:57)
[2021-05-31] MEDS: Diclofenac Sodium (DR) 50 MG TABLET.DR PO SCH ×2 (08:45→19:56)
[2021-05-31] MEDS: Aspirin Enteric Coated 81 MG Tablet PO SCH (08:45)
[2021-05-31] MEDS: Cholecalciferol (D-3) 1,000 UNIT (25MCG) TABLET PO SCH (08:46)
[2021-05-31] MEDS: Metoprolol XL (24 HR) Succ 50 MG TAB.ER.24H PO SCH (08:46)
[2021-05-31] MEDS: DilTIAZem CD (24hr) 120 MG CAP.ER.24H PO SCH (08:46)
[2021-05-31] MEDS: Cyanocobalamin (B-12) 1,000 MCG TABLET PO SCH (08:46)
[2021-05-31] MEDS: Sucralfate 1 GM TABLET PO SCH ×2 (08:46→19:57)
[2021-05-31] MEDS: Nystatin SUSP 5 ML UD.LIQ PO SCH ×4 (08:46→19:57)
[2021-05-31] MEDS: Loratadine 10 MG TABLET PO SCH (08:46)
[2021-05-31] MEDS: rOPINIRole 1 MG TABLET PO SCH ×3 (08:46→19:57)
[2021-05-31] MEDS: Furosemide 20 MG TABLET PO SCH (08:46)
[2021-06-01] MEDS: Cholecalciferol (D-3) 1,000 UNIT (25MCG) TABLET PO SCH (07:59)
[2021-06-01] MEDS: Diclofenac Sodium (DR) 50 MG TABLET.DR PO SCH (07:59)
[2021-06-01] MEDS: Sucralfate 1 GM TABLET PO SCH (07:59)
[2021-06-01] MEDS: Cyanocobalamin (B-12) 1,000 MCG TABLET PO SCH (07:59)
[2021-06-01] MEDS: Apixaban 5 MG TABLET PO SCH (07:59)
[2021-06-01] MEDS: Nystatin SUSP 5 ML UD.LIQ PO SCH ×2 (07:59→13:35)
[2021-06-01] MEDS: Metoprolol XL (24 HR) Succ 50 MG TAB.ER.24H PO SCH (08:00)
[2021-06-01] MEDS: Aspirin Enteric Coated 81 MG Tablet PO SCH (08:00)
[2021-06-01] MEDS: Furosemide 20 MG TABLET PO SCH (08:00)
[2021-06-01] MEDS: rOPINIRole 1 MG TABLET PO SCH ×2 (08:00→15:53)
[2021-06-01] MEDS: Loratadine 10 MG TABLET PO SCH (08:00)
[2021-06-01] MEDS ORDERED: DilTIAZem CD (24hr) 180 MG CAP.ER.24H PO SCH (09:00)
[2021-06-01] MEDS: Budesonide/Formoterol 80/4.5 1 PUFF INH IH SCH (09:46)
[2021-06-01 09:51] VITALS: O2SAT 97
[2021-06-01 12:17] VITALS: PULSE 103; RESP 18; TEMP 98.1
[2021-06-01 12:28] VITALS: BP 92/70
== END 2021-06-01 17:47 | disposition home or self-care (01) ==
LOC: EMEROOPIK 14:16 → INPPIK 14:16
PROVIDERS: ADMIT Internal Medicine; ATTEND Internal Medicine

== ENCOUNTER 2021-06-14 19:46 | Inpatient (IN) ==
[2021-06-14] MEDS ORDERED: Dexamethasone Sodium Phos/PF 10 MG/ML VIAL IVP ONE (19:52)
[2021-06-14] MEDS ORDERED: D5 IVC SCH ×2 (20:00→23:36)
[2021-06-14] MEDS ORDERED: DILTIAZEM IVC SCH ×2 (20:00→23:36)
[2021-06-14] MEDS ORDERED: WATER IVC SCH ×2 (20:00→23:36)
[2021-06-14 20:16] LABS: Basophils % 0.4 %; Eosinophils % 0.4 %; Hematocrit 32.1 % (35.3-44.9); Hemoglobin 9.6 g/dL (11.5-15.4); Immature Granulocytes % 0.8 % (0-4); Lymphocytes # 1.4 K/mcL (0.6-4.6); Lymphocytes % 28.4 %; Mean Corpuscular HGB Conc 29.9 g/dL (31.6-35.5); Mean Corpuscular Hemoglobin 24.6 pg (28.0-33.3); Mean Corpuscular Volume 82.3 fL (83.0-100.0); Mean Platelet Volume 10.7 fL (9.4-12.4); Monocytes # 0.4 K/mcL (0.0-1.3); Monocytes % 7.8 %; Neutrophils # 3.1 K/mcL (1.6-8.9); Platelet Count 280 K/mcL (140-400); Segmented Neutrophils % 62.2 %
[2021-06-14 20:30] LABS: INR 1.2; Prothrombin Time 12.9 Seconds (9.4-12.1)
[2021-06-14 20:32] LABS: Activated Partial Thrombo Time 27.3 Seconds (26.0-36.0)
[2021-06-14 20:40] LABS: BUN/Creatinine Ratio 22 (6-26); Blood Urea Nitrogen 24 mg/dL (8-23); Calcium 8.5 mg/dL (8.6-10.3); Carbon Dioxide 26 mEq/L (23-29); Chloride 105 mEq/L (98-107); Glucose 91 mg/dL (70-105); Magnesium 2.1 mg/dL (1.6-2.6); Osmolality,Calculated 292 (280-300); Potassium 3.8 mEq/L (3.5-5.1); Sodium 139 mEq/L (136-145); eGFR For African Americans 59 (> 60); eGFR For Non-African Americans 49 (> 60)
[2021-06-14 20:41] LABS: Troponin I < 0.03 ng/mL (< 0.04)
[2021-06-14] MEDS ORDERED: Apixaban 5 MG TABLET PO ONE (20:45)
[2021-06-14 20:54] LABS: Thyroid Stimulating Hormone 1.124 mcIU/mL (0.340-5.600)
[2021-06-14] MEDS ORDERED: DilTIAZem CD (24hr) 120 MG CAP.ER.24H PO ONE (22:21)
[2021-06-14] MEDS ORDERED: MOM Conc 10 ML UD.LIQ PO PRN (23:36)
[2021-06-14] MEDS ORDERED: Ipratropium/Albuterol Neb 3 ML IH PRN (23:36)
[2021-06-14] MEDS ORDERED: Naloxone 0.4 MG/ML INJ IVP PRN (23:36)
[2021-06-14] MEDS ORDERED: Mag Hydrox/Al Hydrox/Simeth 30 ML UDC PO PRN (23:36)
[2021-06-14] MEDS ORDERED: 0.9 % Sodium Chloride 1,000 ML IVC SCH (23:36)
[2021-06-15] MEDS ORDERED: DILTIAZEM IVC SCH ×2 (00:30→09:30)
[2021-06-15] MEDS ORDERED: D5 IVC SCH ×2 (00:30→09:30)
[2021-06-15] MEDS ORDERED: WATER IVC SCH ×2 (00:30→09:30)
[2021-06-15] MEDS: Melatonin 3 MG TABLET PO PRN ×2 (01:03→23:03)
[2021-06-15] MEDS: Azithromycin 250 MG TABLET PO SCH ×2 (01:03→09:30)
[2021-06-15] MEDS ORDERED: DilTIAZem CD (24hr) 180 MG CAP.ER.24H PO SCH (09:00)
[2021-06-15] MEDS ORDERED: Furosemide 20 MG TABLET PO SCH (09:00)
[2021-06-15] MEDS: Diclofenac Sodium (DR) 50 MG TABLET.DR PO SCH ×2 (09:30→23:02)
[2021-06-15] MEDS: Cyanocobalamin (B-12) 1,000 MCG TABLET PO SCH (09:30)
[2021-06-15] MEDS: Metoprolol XL (24 HR) Succ 25 MG TAB.ER.24H PO SCH (09:30)
[2021-06-15] MEDS: Sucralfate 1 GM TABLET PO SCH ×2 (09:30→23:03)
[2021-06-15] MEDS: Cholecalciferol (D-3) 1,000 UNIT (25MCG) TABLET PO SCH (09:30)
[2021-06-15] MEDS: Apixaban 5 MG TABLET PO SCH ×2 (09:30→23:02)
[2021-06-15] MEDS: Loratadine 10 MG TABLET PO SCH (09:30)
[2021-06-15] MEDS: Aspirin Enteric Coated 81 MG Tablet PO SCH (09:30)
[2021-06-15] MEDS: Ondansetron ODT 4 MG TAB.RAPDIS SL PRN (11:00)
[2021-06-15] MEDS ORDERED: Levalbuterol Neb 1.25 MG/3 ML IH PRN (12:02)
[2021-06-15] MEDS ORDERED: 0.9 % Sodium Chloride 500 ML IV ONE (17:19)
[2021-06-15] MEDS: rOPINIRole 1 MG TABLET PO SCH (17:26)
[2021-06-16] MEDS: Budesonide/Formoterol 80/4.5 1 PUFF INH IH SCH ×3 (03:50→22:43)
[2021-06-16 06:36] LABS: Basophils % 0.1 %; Hematocrit 29.8 % (35.3-44.9); Immature Granulocytes % 0.8 % (0-4); Lymphocytes % 10.5 %; Mean Corpuscular HGB Conc 30.2 g/dL (31.6-35.5); Mean Corpuscular Hemoglobin 24.9 pg (28.0-33.3); Mean Corpuscular Volume 82.5 fL (83.0-100.0); Mean Platelet Volume 11.2 fL (9.4-12.4); Monocytes # 0.3 K/mcL (0.0-1.3); Monocytes % 3.6 %; Neutrophils # 8.1 K/mcL (1.6-8.9); Platelet Count 315 K/mcL (140-400); Red Blood Count 3.61 M/mcL (3.82-4.97); Red Cell Distribution Width 15.1 % (11.5-14.5); White Blood Count 9.5 K/mcL (4.3-11.1)
[2021-06-16 06:52] LABS: Calcium 8.4 mg/dL (8.6-10.3); Potassium 4.5 mEq/L (3.5-5.1)
[2021-06-16] MEDS: Apixaban 5 MG TABLET PO SCH ×2 (09:55→21:45)
[2021-06-16] MEDS: Cholecalciferol (D-3) 1,000 UNIT (25MCG) TABLET PO SCH (09:56)
[2021-06-16] MEDS: Azithromycin 250 MG TABLET PO SCH (09:56)
[2021-06-16] MEDS: Sucralfate 1 GM TABLET PO SCH ×2 (09:56→21:44)
[2021-06-16] MEDS: Diclofenac Sodium (DR) 50 MG TABLET.DR PO SCH ×2 (09:56→21:44)
[2021-06-16] MEDS: Cyanocobalamin (B-12) 1,000 MCG TABLET PO SCH (09:56)
[2021-06-16] MEDS: Metoprolol XL (24 HR) Succ 25 MG TAB.ER.24H PO SCH ×2 (09:57→21:44)
[2021-06-16] MEDS: Aspirin Enteric Coated 81 MG Tablet PO SCH (09:57)
[2021-06-16] MEDS: Loratadine 10 MG TABLET PO SCH (09:57)
[2021-06-16] MEDS ORDERED: 0.9 % Sodium Chloride 1,000 ML IV ONE (10:53)
[2021-06-16] MEDS: Ondansetron ODT 4 MG TAB.RAPDIS SL PRN ×2 (10:57→21:49)
[2021-06-16] MEDS: rOPINIRole 1 MG TABLET PO SCH (17:11)
[2021-06-16] MEDS: Melatonin 3 MG TABLET PO PRN (21:45)
[2021-06-17 07:04] LABS: Basophils % 0.1 %; Hematocrit 29.8 % (35.3-44.9); Hemoglobin 8.8 g/dL (11.5-15.4); Immature Granulocytes % 0.8 % (0-4); Lymphocytes % 8.4 %; Mean Corpuscular HGB Conc 29.5 g/dL (31.6-35.5); Mean Corpuscular Hemoglobin 24.6 pg (28.0-33.3); Mean Corpuscular Volume 83.2 fL (83.0-100.0); Mean Platelet Volume 11.2 fL (9.4-12.4); Monocytes # 0.6 K/mcL (0.0-1.3); Neutrophils # 9.9 K/mcL (1.6-8.9); Platelet Count 336 K/mcL (140-400); Red Blood Count 3.58 M/mcL (3.82-4.97); Red Cell Distribution Width 15.2 % (11.5-14.5); Segmented Neutrophils % 85.7 %; White Blood Count 11.6 K/mcL (4.3-11.1)
[2021-06-17 07:26] LABS: Calcium 8.4 mg/dL (8.6-10.3); Magnesium 2.1 mg/dL (1.6-2.6); Potassium 4.3 mEq/L (3.5-5.1)
[2021-06-17] MEDS: Aspirin Enteric Coated 81 MG Tablet PO SCH (09:53)
[2021-06-17] MEDS: Nystatin SUSP 5 ML UD.LIQ PO SCH ×4 (09:53→20:06)
[2021-06-17] MEDS: Cyanocobalamin (B-12) 1,000 MCG TABLET PO SCH (09:54)
[2021-06-17] MEDS: Diclofenac Sodium (DR) 50 MG TABLET.DR PO SCH ×2 (09:54→20:06)
[2021-06-17] MEDS: DilTIAZem CD (24hr) 120 MG CAP.ER.24H PO SCH (09:54)
[2021-06-17] MEDS: Sucralfate 1 GM TABLET PO SCH ×2 (09:54→20:06)
[2021-06-17] MEDS: Apixaban 5 MG TABLET PO SCH ×2 (09:54→20:06)
[2021-06-17] MEDS: Cholecalciferol (D-3) 1,000 UNIT (25MCG) TABLET PO SCH (09:54)
[2021-06-17] MEDS: Azithromycin 250 MG TABLET PO SCH (09:55)
[2021-06-17] MEDS: Loratadine 10 MG TABLET PO SCH (09:55)
[2021-06-17] MEDS: Metoprolol XL (24 HR) Succ 25 MG TAB.ER.24H PO SCH ×2 (10:02→20:07)
[2021-06-17] MEDS: 0.9 % Sodium Chloride 1,000 ML IVC SCH ×2 (10:02→23:07)
[2021-06-17] MEDS: Budesonide/Formoterol 80/4.5 1 PUFF INH IH SCH ×2 (10:22→23:14)
[2021-06-17] MEDS ORDERED: Benzonatate 100 MG CAPSULE PO PRN (10:22)
[2021-06-17] MEDS: Levalbuterol 1 PUFF INHALER IH PRN ×2 (10:23→23:14)
[2021-06-17] MEDS ORDERED: *HR* Metoprolol 5 MG/5 ML VIAL IVP ONE (13:09)
[2021-06-17 13:50] LABS: Hematocrit 31.2 % (35.3-44.9); Hemoglobin 9.3 g/dL (11.5-15.4)
[2021-06-17] MEDS ORDERED: *HR* Metoprolol 5 MG/5 ML VIAL IVP PRN (14:51)
[2021-06-17] MEDS: rOPINIRole 1 MG TABLET PO SCH (17:10)
[2021-06-17] MEDS: Melatonin 3 MG TABLET PO PRN (20:07)
[2021-06-18 02:48] VITALS: TEMP 97.3
[2021-06-18] MEDS ORDERED: Acetaminophen 325 MG TABLET PO PRN (02:51)
[2021-06-18 04:43] LABS: Basophils % 0.1 %; Hematocrit 30.5 % (35.3-44.9); Immature Granulocytes % 0.8 % (0-4); Lymphocytes # 1.7 K/mcL (0.6-4.6); Lymphocytes % 17.3 %; Mean Corpuscular HGB Conc 29.5 g/dL (31.6-35.5); Mean Corpuscular Hemoglobin 24.7 pg (28.0-33.3); Mean Corpuscular Volume 83.6 fL (83.0-100.0); Monocytes # 0.7 K/mcL (0.0-1.3); Neutrophils # 7.5 K/mcL (1.6-8.9); Platelet Count 344 K/mcL (140-400); Red Blood Count 3.65 M/mcL (3.82-4.97); Red Cell Distribution Width 15.4 % (11.5-14.5); Segmented Neutrophils % 74.8 %
[2021-06-18 05:09] LABS: Calcium 8.3 mg/dL (8.6-10.3); Magnesium 2.1 mg/dL (1.6-2.6); Potassium 4.8 mEq/L (3.5-5.1)
[2021-06-18] MEDS: Budesonide/Formoterol 80/4.5 1 PUFF INH IH SCH (09:36)
[2021-06-18] MEDS: Levalbuterol 1 PUFF INHALER IH PRN (09:36)
[2021-06-18 09:40] VITALS: RESP 20
[2021-06-18] MEDS: Metoprolol XL (24 HR) Succ 25 MG TAB.ER.24H PO SCH (10:42)
[2021-06-18] MEDS: Cyanocobalamin (B-12) 1,000 MCG TABLET PO SCH (10:43)
[2021-06-18] MEDS: DilTIAZem CD (24hr) 120 MG CAP.ER.24H PO SCH (10:43)
[2021-06-18] MEDS: Diclofenac Sodium (DR) 50 MG TABLET.DR PO SCH ×2 (10:43→10:46)
[2021-06-18] MEDS ORDERED: Nystatin POWDER 30 GM BOTTLE TP SCH (10:45)
[2021-06-18] MEDS: Loratadine 10 MG TABLET PO SCH (10:45)
[2021-06-18] MEDS: Azithromycin 250 MG TABLET PO SCH (10:45)
[2021-06-18] MEDS: Aspirin Enteric Coated 81 MG Tablet PO SCH (10:46)
[2021-06-18] MEDS: Cholecalciferol (D-3) 1,000 UNIT (25MCG) TABLET PO SCH (10:46)
[2021-06-18] MEDS: Sucralfate 1 GM TABLET PO SCH (10:47)
[2021-06-18] MEDS: Apixaban 5 MG TABLET PO SCH (10:47)
[2021-06-18] MEDS: Nystatin SUSP 5 ML UD.LIQ PO SCH (10:51)
[2021-06-18] MEDS ORDERED: Furosemide 20 MG/2 ML VIAL IVP ONE (11:00)
[2021-06-18 11:08] VITALS: O2SAT 94
[2021-06-18 11:20] VITALS: BP 116/67; PULSE 136
== END 2021-06-18 12:59 | disposition short-term general hospital (02) | DRG 137 ==
LOC: INPPIK 19:46 → EMEROOPIK 19:46 → INPPIK 23:23
PROVIDERS: ADMIT Internal Medicine; ATTEND Internal Medicine